=== PATIENT | male | born 1980 | race Asian ===

== ENCOUNTER 2020-04-05 15:37 | Emergency (ER) | payer BC, OTHER | END 2020-04-05 15:45 | disposition home or self-care (01) | LOC: JVIRT 15:37 | DX: Z20.822 Contact with and (suspected) exposure to COVID-19 (principal) | CPT/HCPCS: C9803; G2012-GT; U0003 ==

== ENCOUNTER 2020-04-09 13:34 | Emergency (ER) | payer BC, OTHER | END 2020-04-09 13:43 | disposition home or self-care (01) | LOC: JVIRT 13:34 | DX: Z20.822 Contact with and (suspected) exposure to COVID-19 (principal) | CPT/HCPCS: C9803; G2012-GT; U0003 ==